=== PATIENT | female | born 1965 | race Caucasian/White ===

== ENCOUNTER → 2020-05-07 | Day surgery (SDC) | payer BC, OTHER ==
[~2020-05-07] MED LIST: BIOTIN PO; CENTRUM SILVER1 EAC1 PO; CITRACAL + D M1 EACH PO; CITRACAL-VIT D1 EACH PO; COZAAR50 MG PO; DITROPAN 5 MG TA5 MG PO; HARD NAILS2500 MCG PO; KLOR-CON M1515 MEQ PO; METHENAMINE HIPP1 GM PO; MONTELUKAST SOD10 MG PO; POTASSIUM CITR15 MEQ PO; SINGULAIR10 MG PO; SYMBICORT 80-41 INHA INH; VITAMIN B12 PO; [UNRECOGNIZED DRUG - CODE] PO
== END | disposition home or self-care (01) ==
LOC: OR 10:46
DX: N39.0 Urinary tract infection, site not specified (principal); I10 Essential (primary) hypertension; E11.9 Type 2 diabetes mellitus without complications; J45.909 Unspecified asthma, uncomplicated; Z79.899 Other long term (current) drug therapy; Z88.0 Allergy status to penicillin; Z87.442 Personal history of urinary calculi
CPT/HCPCS: 81001; 87086; J7040

== ENCOUNTER → 2020-05-11 | Outpatient (CLI) | payer BC, OTHER | LOC: KOH-I 12:41 | DX: R30.0 Dysuria (principal); N39.0 Urinary tract infection, site not specified; N20.0 Calculus of kidney; K57.90 Diverticulosis of intestine, part unspecified, without perforation or abscess without bleeding | CPT/HCPCS: 74176 ==

== ENCOUNTER → 2020-05-21 | Outpatient (CLI) | payer BC, OTHER | LOC: KOH-I 08:54 | DX: N20.0 Calculus of kidney (principal); Z87.442 Personal history of urinary calculi | CPT/HCPCS: 74018 ==

== ENCOUNTER → 2020-06-17 | Outpatient (CLI) | payer BC, OTHER | LOC: KOH-I 09:06 | DX: N20.0 Calculus of kidney (principal) | CPT/HCPCS: 74018 ==

== ENCOUNTER → 2020-06-18 | Day surgery (SDC) | payer BC, OTHER | END | disposition home or self-care (01) | LOC: OR 11:34 | DX: N20.0 Calculus of kidney (principal); N39.0 Urinary tract infection, site not specified; E66.01 Morbid (severe) obesity due to excess calories; E11.9 Type 2 diabetes mellitus without complications; I10 Essential (primary) hypertension; J45.909 Unspecified asthma, uncomplicated; Z88.0 Allergy status to penicillin; Z79.899 Other long term (current) drug therapy; Z84.2 Family history of other diseases of the genitourinary system; Z83.6 Family history of other diseases of the respiratory system; Z82.49 Family history of ischemic heart disease and other diseases of the circulatory system; Z80.1 Family history of malignant neoplasm of trachea, bronchus and lung; Z83.3 Family history of diabetes mellitus; Z68.38 Body mass index [BMI] 38.0-38.9, adult | CPT/HCPCS: 74018; C1769; J1956; J2001; J2250; J2405; J2704; J3010; J7030; J7120 ==

== ENCOUNTER → 2020-07-15 | Outpatient (CLI) | payer BC, OTHER | LOC: KOH-I 08:31 | DX: N20.0 Calculus of kidney (principal) | CPT/HCPCS: 74018 ==

== ENCOUNTER → 2020-09-01 | Outpatient (CLI) | payer BC, OTHER | LOC: KOH-I 08:41 | DX: N20.0 Calculus of kidney (principal) | CPT/HCPCS: 74018 ==

== ENCOUNTER → 2020-10-05 | Outpatient (CLI) | payer BC, OTHER | LOC: KOH-I 09:11 | DX: N20.0 Calculus of kidney (principal) | CPT/HCPCS: 74018 ==

== ENCOUNTER → 2020-11-05 | Day surgery (SDC) | payer BC ==
[2020-11-05 09:47] LABS: BUN/CREATININE RATIO 19 (0-10)
== END | disposition home or self-care (01) ==
LOC: OR 08:42
PROVIDERS: Urology
DX: N20.0 Calculus of kidney (principal); N39.0 Urinary tract infection, site not specified; Z20.822 Contact with and (suspected) exposure to COVID-19; I10 Essential (primary) hypertension; E66.01 Morbid (severe) obesity due to excess calories; K21.9 Gastro-esophageal reflux disease without esophagitis; E11.9 Type 2 diabetes mellitus without complications; Z88.0 Allergy status to penicillin; Z98.84 Bariatric surgery status
CPT/HCPCS: 36415; 80048; 93005; C1769; C1894; C2617; J1170; J1956; J2001; J2250; J2704; J7030; J7120

== ENCOUNTER → 2020-12-07 | Outpatient (CLI) | payer BC | LOC: KOH-I 11:23 | DX: N20.0 Calculus of kidney (principal) | CPT/HCPCS: 74018 ==

== ENCOUNTER → 2021-03-30 | Outpatient (CLI) | payer BC | LOC: KOH-I 09:19 | DX: N20.0 Calculus of kidney (principal); N39.0 Urinary tract infection, site not specified; M54.50 Low back pain, unspecified; R14.3 Flatulence | CPT/HCPCS: 74018 ==

== ENCOUNTER → 2021-10-11 | Outpatient (CLI) | payer BC | LOC: KOH-I 11:04 | DX: N20.0 Calculus of kidney (principal) | CPT/HCPCS: 74018 ==